=== PATIENT | male | born 1935 | race Caucasian/White ===

== ENCOUNTER 2019-04-09 20:44 | Emergency (ER) | payer MEDICARE ==
[~2019-04-09] VITALS: Ht 175.3 cm; Wt 78.2 kg
[2019-04-09] MEDS ORDERED: XARE20TA PO ×2 (21:10→21:52)
[2019-04-09] MEDS ORDERED: AVAP75TA7 PO (21:10)
[2019-04-09] MEDS ORDERED: ESOM40CA35 PO (21:10)
[2019-04-09] MEDS ORDERED: ATOR1TAB21 PO ×2 (21:10→21:52)
[2019-04-09] MEDS ORDERED: FLOM0.4C39 PO ×2 (21:10→21:52)
[2019-04-09] MEDS ORDERED: SERT-141 PO (21:10)
[2019-04-09] MEDS ORDERED: LOPR1TAB6 PO (21:10)
[2019-04-09 21:31] LABS: HEMATOCRIT 39.4 % (42.0-52.0); HEMOGLOBIN 13.4 g/dl (13.5-17.5); MEAN CORPUSCULAR HEMOGLOBIN 32.8 pg (27.0-33.0); MEAN CORPUSCULAR VOLUME 96.3 fl (80.0-96.0); PLATELET COUNT, AUTOMATED 201 10^3/uL (150-450); RED BLOOD COUNT 4.09 10^6/uL (4.30-6.10); WHITE BLOOD COUNT 12.1 10^3/uL (4.0-10.0)
[2019-04-09] MEDS ORDERED: METO1TAB7 PO (21:52)
[2019-04-09] MEDS ORDERED: SERT50TA29 PO (21:52)
[2019-04-09] MEDS ORDERED: IRBE75TA5 PO (21:52)
[2019-04-09] MEDS ORDERED: ESOM1CAP5 PO (21:52)
[2019-04-09 21:56] LABS: AMPHETAMINES LEVEL URINE NEGATIVE (NEGATIVE); BARBITURATES URINE NEGATIVE (NEGATIVE); BENZODIAZEPINES URINE NEGATIVE (NEGATIVE); CANNABINOIDS URINE NEGATIVE (NEGATIVE); COCAINE METABOLITE URINE NEGATIVE (NEGATIVE); METHADONE URINE NEGATIVE (NEGATIVE); OPIATES URINE NEGATIVE (NEGATIVE); PHENCYCLIDINE URINE NEGATIVE (NEGATIVE)
[2019-04-09 22:10] LABS: ACETAMINOPHEN LEVEL < 2.0 UG/ML (10.0-30.0); ALBUMIN 3.4 GM/DL (3.2-5.2); ALT/SGPT 42 U/L (12-78); BILIRUBIN,DIRECT 0.2 MG/DL (0.0-0.2); BILIRUBIN,TOTAL 0.8 MG/DL (0.2-1.0); BLOOD UREA NITROGEN 33 MG/DL (7-18); CALCIUM LEVEL 8.5 MG/DL (8.8-10.2); CARBON DIOXIDE LEVEL 27 MEQ/L (21-32); CHLORIDE LEVEL 102 MEQ/L (98-107); ETHYL ALCOHOL (ETHANOL) < 0.003 % (0.000-0.010); GLOMERULAR FILTRATION RATE 51.8 (>35); GLUCOSE, FASTING 115 MG/DL (70-100); POTASSIUM SERUM 4.8 MEQ/L (3.5-5.1); SALICYLATE LEVEL < 1.7 MG/DL (5.0-30.0); SODIUM LEVEL 139 MEQ/L (136-145); TOTAL PROTEIN 6.2 GM/DL (6.4-8.2)
[2019-04-10 02:17] VITALS: BP 102/60
== END 2019-04-10 02:18 | disposition home or self-care (01) ==
LOC: M ED 20:44
DX: F43.0 Acute stress reaction (principal); F32.0 Major depressive disorder, single episode, mild; Z79.899 Other long term (current) drug therapy
CPT/HCPCS: 36415; 80048; 80076; 80307; 81001; 84443; 85027; 87086; 99284; G0480

== ENCOUNTER 2024-06-16 17:19 | Emergency (ER) | payer MEDICARE ==
[~2024-06-16] VITALS: Ht 172.7 cm; Wt 85.0 kg
[~2024-06-16 17:19] MED LIST: ATOR1TAB21 PO; AVAP75TA7 PO; ESOM1CAP20 PO; ESOM40CA35 PO; FLOM0.4C39 PO; IRBE75TA11 PO; LOPR1TAB6 PO; METO1TAB7 PO; SERT-141 PO; SERT50TA29 PO; XARE20TA PO
[2024-06-16 18:27] LABS: HEMATOCRIT 39.6 % (42.0-52.0); HEMOGLOBIN 13.1 g/dl (13.5-17.5); MEAN CORPUSCULAR HEMOGLOBIN 31.8 pg (27.0-33.0); MEAN CORPUSCULAR HGB CONC 33.1 g/dl (32.0-36.5); MEAN CORPUSCULAR VOLUME 96.1 fl (80.0-96.0); PLATELET COUNT, AUTOMATED 165 10^3/uL (150-450); RED BLOOD COUNT 4.12 10^6/uL (4.30-6.10); WHITE BLOOD COUNT 7.1 10^3/uL (4.0-10.0)
[2024-06-16 18:46] LABS: CANNABINOIDS URINE NEGATIVE (NEGATIVE); METHADONE URINE NEGATIVE (NEGATIVE); OPIATES URINE NEGATIVE (NEGATIVE); PHENCYCLIDINE URINE NEGATIVE (NEGATIVE)
[2024-06-16 18:47] LABS: AMPHETAMINES LEVEL URINE NEGATIVE (NEGATIVE); BARBITURATES URINE NEGATIVE (NEGATIVE); BENZODIAZEPINES URINE NEGATIVE (NEGATIVE); COCAINE METABOLITE URINE NEGATIVE (NEGATIVE)
[2024-06-16 18:48] LABS: ETHYL ALCOHOL (ETHANOL) 0.004 % (0.000-0.010)
[2024-06-16 18:50] LABS: ALBUMIN 3.7 G/DL (3.2-5.2); ALKALINE PHOSPHATASE 144 U/L (40-129); ALT/SGPT 30 U/L (7.0-40); AST/SGOT 28 U/L (<34); BILIRUBIN,DIRECT 0.2 MG/DL (<0.4); BILIRUBIN,TOTAL 0.7 MG/DL (0.3-1.2); BLOOD UREA NITROGEN 17 MG/DL (9-23); CARBON DIOXIDE LEVEL 23 MMOL/L (20-31); CHLORIDE LEVEL 105 MMOL/L (98-107); CREATININE FOR GFR 0.89 MG/DL (0.70-1.30); GLOMERULAR FILTRATION RATE > 60.0 (>35); GLUCOSE, FASTING 98 MG/DL (74-106); POTASSIUM SERUM 4.5 MMOL/L (3.5-5.1); SALICYLATE LEVEL < 3.0 MG/DL (<30); SODIUM LEVEL 140 MMOL/L (136-145); TOTAL PROTEIN 6.6 G/DL (5.7-8.2)
[2024-06-16 18:52] LABS: THYROID STIMULATING HORMONE 2.024 uIU/ML (0.55-4.78)
[2024-06-16 23:26] VITALS: BP 135/65; TEMP 97.3; O2SAT 96
== END 2024-06-16 23:28 | disposition home or self-care (01) ==
LOC: M ED 17:19 → EDBD 17:19 → M ED 23:28
DX: F43.0 Acute stress reaction (principal); F41.9 Anxiety disorder, unspecified; R45.6 Violent behavior; F03.90 Unspecified dementia, unspecified severity, without behavioral disturbance, psychotic disturbance, mood disturbance, and anxiety; Z79.01 Long term (current) use of anticoagulants; Z79.899 Other long term (current) drug therapy; Z88.8 Allergy status to other drugs, medicaments and biological substances